=== PATIENT | male | born 1990 | race Caucasian/White ===

== ENCOUNTER 2018-06-11 19:13 | Inpatient (IN) | payer OTHER ==
[~2018-06-11] VITALS: Ht 182.9 cm; Wt 97.5 kg
--- NOTE | ~2018-06-11 | PATH ---
[facility] [address] [address] PATHOLOGY RPT PROCEDURE Name: CRUZ HAIDER Room #: 349-I DIS IN M.R.#: [id number] Admission: 06/11/18 Date of : 89 Discharge: 06/13/18 Report #: [id number] Path Case #: [id number] [facility] Accession Number: [id number] . 01 Material submitted: . ANTRUM BX R/O H PYLORI . 01 Clinical history: . Pre-op diagnosis: Coffee-ground emesis Post-op diagnosis: Esophagitis, gastritis R/O H. pylori . 02 Diagnosis: Gastric biopsy, antrum: - Mild chronic reactive gastropathy. - The immunoperoxidase stain for Helicobacter pylori is negative. (SHA:pit 06/14/2018) QTP/06/14/2018 . 02 Electronically signed: . Jonathan Marshall MD, Pathologist NPI- [id number] . 01 Gross description: . The specimen is received in formalin, labeled "Cruz Haider, antrum biopsy, R/O H. pylori". Received are two segments of pale french soft tissue measuring 0.4 and 0.5 cm in maximum dimensions. The specimen is submitted entirely in cassette A1. (CAA; 06/13/2018) QAC/QAC . 02 Pathologist provided ICD-10: K31.9 . 02 CPT . 245580, [id number] Specimen Comment: A courtesy copy of this report has been sent to Specimen Comment: [phone], . Specimen Comment: Report sent to / DR BENSON Performed at: [address], [place] [id number] MD Nabil Woods MD Phone: [phone] Performed at: [address] [id number] MD Shruthi Hooper MD Phone: [phone]
[2018-06-11 19:17] VITALS: BP 164/103
[2018-06-11] MEDS ORDERED: [UNRECOGNIZED DRUG - REMARK] (19:50)
[2018-06-11 19:55] LABS: HEMATOCRIT 49.5 % (42.0-52.0); HEMOGLOBIN 17.4 gm/dL (14.0-18.0); MCH 32.4 pg (26.0-34.0); MCHC 35.1 g/dL (28.0-37.0); MCV 92.3 fL (80.0-100.0); PLATELET COUNT 187 thou/uL (150-400); RBC 5.36 mil/uL (4.50-6.00); RDW 13.9 % (10.5-14.5); WBC 5.3 thou/uL (4.0-11.0)
[2018-06-11 20:02] LABS: CALCIUM 9.9 mg/dL (8.5-10.1); CREATININE 1.3 mg/dL (0.7-1.3); POTASSIUM 3.3 mmol/L (3.5-5.1)
[2018-06-11 20:07] LABS: ALBUMIN 4.2 g/dL (3.4-5.0); TOTAL BILIRUBIN 1.1 mg/dL (<0.1-1.0); TOTAL PROTEIN 8.8 g/dL (6.4-8.2)
[2018-06-11 20:10] LABS: ICTOTEST (BILI CONFIRMATORY) Positive (Negative); URINE BILIRUBIN 2+ (Negative); URINE BLOOD NEGATIVE (Negative); URINE CLARITY CLEAR; URINE COLOR YELLOW; URINE GLUCOSE-RANDOM* NEGATIVE (Negative); URINE KETONES 1+ (Negative); URINE LEUKOCYTES NEGATIVE (Negative); URINE NITRITE POSITIVE (Negative); URINE PROTEIN (DIPSTICK) 2+ (Negative); URINE SPECIFIC GRAVITY 1.015 (1.005-1.035)
[2018-06-11 20:23] LABS: ABSOLUTE NEUTROPHILS 3.1 thou/uL (1.4-8.2); ATYPICAL LYMPHS 4 %; PLATELET ESTIMATE NORMAL
[2018-06-11 20:25] LABS: AMP/METHAMP Negative (Negative); BARBITURATES Negative (Negative); BENZODIAZEPINES POSITIVE (Negative); CASTS None Seen /LPF (None Seen); COCAINE Negative (Negative); CRYSTALS None Seen /LPF (None Seen); METHADONE Negative (Negative); MUCUS >6 Heavy strn/LPF (None Seen); OPIATES Negative (Negative); PCP Negative (Negative); SQUAMOUS None Seen /LPF (0-3); URINE RBC None Seen /HPF (0-2); URINE WBC 0-5 Rare /HPF (0-5)
[2018-06-11 21:26] VITALS: BP 184/98
[2018-06-11 21:51] VITALS: BP 184/98
[2018-06-11 22:38] VITALS: BP 136/85
[2018-06-12 03:37] LABS: MCH 32.6 pg (26.0-34.0); RBC 4.62 mil/uL (4.50-6.00); RDW 14.3 % (10.5-14.5); WBC 6.5 thou/uL (4.0-11.0)
[2018-06-12 03:46] LABS: HEMOGLOBIN 15.1 gm/dL (14.0-18.0)
[2018-06-12 03:53] LABS: CALCIUM 8.1 mg/dL (8.5-10.1); CREATININE 0.9 mg/dL (0.7-1.3); MAGNESIUM 1.5 mg/dL (1.8-2.4); POTASSIUM 3.1 mmol/L (3.5-5.1)
[2018-06-12 04:10] VITALS: BP 122/79
[2018-06-12 07:51] VITALS: BP 132/83
[2018-06-12] MEDS ORDERED: NEURONTIN 300300 M1 PO (10:28)
[2018-06-12 13:46] VITALS: BP 140/92
[2018-06-12 14:24] LABS: POTASSIUM 3.5 mmol/L (3.5-5.1)
[2018-06-12 15:14] VITALS: BP 135/90
[2018-06-12 19:31] VITALS: BP 134/93
[2018-06-13 04:18] VITALS: BP 110/74
[2018-06-13 06:02] LABS: CALCIUM 8.4 mg/dL (8.5-10.1); CREATININE 0.9 mg/dL (0.7-1.3); POTASSIUM 3.3 mmol/L (3.5-5.1)
[2018-06-13 07:38] VITALS: BP 125/83
[2018-06-13] MEDS ORDERED: PANTOPRAZOLE SO40 M1 PO (08:49)
[2018-06-13 10:01] VITALS: BP 125/83
[2018-06-13 10:18] LABS: HEMATOCRIT 44.9 % (42.0-52.0); HEMOGLOBIN 15.5 gm/dL (14.0-18.0)
[2018-06-13 10:31] LABS: ALBUMIN 3.2 g/dL (3.4-5.0); DIRECT BILIRUBIN 0.2 mg/dL (<0.1-0.3); TOTAL BILIRUBIN 0.8 mg/dL (<0.1-1.0); TOTAL PROTEIN 6.8 g/dL (6.4-8.2)
[2018-06-13 11:58] VITALS: BP 125/83
== END 2018-06-13 12:04 | disposition home or self-care (01) | DRG 392 ==
LOC: ER 19:13 → 3W 21:13 → EROBS 21:13 → 3W 21:51
PROVIDERS: Internal Medicine Gastroenterology; Nurse Practitioner Acute Care; Physician Assistant
PROC: 0DB68ZX Excision of Stomach, Via Natural or Artificial Opening Endoscopic, Diagnostic (ICD-10-PCS; principal; 2018-06-12)
DX: K29.20 Alcoholic gastritis without bleeding (principal); F31.9 Bipolar disorder, unspecified; E83.42 Hypomagnesemia; F17.210 Nicotine dependence, cigarettes, uncomplicated; E87.6 Hypokalemia; F10.10 Alcohol abuse, uncomplicated; K21.0 Gastro-esophageal reflux disease with esophagitis; K44.9 Diaphragmatic hernia without obstruction or gangrene; K29.80 Duodenitis without bleeding; Z87.81 Personal history of (healed) traumatic fracture; Z88.8 Allergy status to other drugs, medicaments and biological substances
CPT/HCPCS: 10879; 62110; 62900; 70005